=== PATIENT | female | born 1980 ===

== ENCOUNTER 2021-05-22 04:06 | Outpatient (CLI) | payer BC, SELFPAY ==
[2021-05-22 08:09] LABS: HCT 32.8 % (36.0-46.0); MCHC 33.5 % (32.0-36.0); MCV 95.3 fL (80-95); MPV 10.5 fL (8.0-11.0); Platelet Count 189 10^3/uL (130-400); RBC 3.44 10^6/uL (3.93-5.22); RDW 11.9 % (11.7-14.6); RDW-SD 41.4 fL; WBC 6.61 10^3/uL (4.4-10.8)
[2021-05-22 08:16] LABS: Glucose,1 Hr (Glucola) 177 mg/dL (80-140)
== END 2021-05-22 04:07 | disposition home or self-care (01) ==
LOC: LBO 04:06
PROVIDERS: Obstetrics & Gynecology Gynecology; Visit Provider Advanced Practice Midwife
DX: Z34.92 Encounter for supervision of normal pregnancy, unspecified, second trimester (principal); Z3A.27 27 weeks gestation of pregnancy
CPT/HCPCS: 36415; 82950; 85027

== ENCOUNTER 2021-06-04 04:03 | Outpatient (CLI) | payer BC, SELFPAY ==
[2021-06-04 09:15] LABS: Glucose 1 Hour 150 mg/dL
[2021-06-04 11:05] LABS: Glucose 3 Hour 71 mg/dL
[2021-06-06 10:04] LABS: CMV IgG Antibody Negative (See Note)
== END 2021-06-04 04:04 | disposition home or self-care (01) ==
LOC: LBO 04:03
PROVIDERS: Visit Provider Advanced Practice Midwife
DX: Z34.93 Encounter for supervision of normal pregnancy, unspecified, third trimester (principal)
CPT/HCPCS: 36410; 82951; 86644; 86645

== ENCOUNTER 2021-06-26 03:01 | Outpatient (CLI) | payer BC, SELFPAY | END 2021-06-26 03:02 | disposition home or self-care (01) | LOC: LBO 03:01 | PROVIDERS: Advanced Practice Midwife; Visit Provider Advanced Practice Midwife | DX: Z34.93 Encounter for supervision of normal pregnancy, unspecified, third trimester (principal) | CPT/HCPCS: 36415; 86850; 86900; 86901; 86645 ==